=== PATIENT | female | born 1980 | race Caucasian/White ===

== ENCOUNTER 2017-02-09 18:49 | Emergency (ER) | payer BC ==
[~2017-02-09] VITALS: Ht 165.1 cm; Wt 95.5 kg
[2017-02-09] MEDS ORDERED: CYCLOBENZAPRIN7.5 MG PO (23:08)
[2017-02-09 23:25] VITALS: BP 121/78
== END 2017-02-09 23:25 | disposition home or self-care (01) ==
LOC: ED 18:49
DX: M54.5 Low back pain (principal); R35.0 Frequency of micturition; R19.7 Diarrhea, unspecified; R11.0 Nausea
CPT/HCPCS: J1885

== ENCOUNTER 2017-03-19 16:19 | Emergency (ER) | payer OTHER, BC ==
[~2017-03-19 16:19] MED LIST: CYCLOBENZAPRIN7.5 MG PO
[2017-03-19] MEDS ORDERED: ENTYVIO300 MG IV (16:28)
[2017-03-19] MEDS ORDERED: NORCO 325 MG-51 TAB PO (18:18)
[2017-03-19 19:20] VITALS: BP 114/71
== END 2017-03-19 18:35 | disposition home or self-care (01) ==
LOC: ED 16:19
DX: S13.4XXA Sprain of ligaments of cervical spine, initial encounter (principal); V49.50XA Passenger injured in collision with unspecified motor vehicles in traffic accident, initial encounter; Y92.410 Unspecified street and highway as the place of occurrence of the external cause; K50.90 Crohn's disease, unspecified, without complications
CPT/HCPCS: J1885